=== PATIENT | female | born 1985 | race Caucasian/White ===

== ENCOUNTER → 2016-10-16 | Outpatient (CLI) | payer OTHER ==
[~2016-10-16] MED LIST: CALC500C3; PRENTAB26 PO
[2016-10-16 18:54] LABS: PREG INTERNAL NEGATIVE QC NEG CLEAR BACKGROUND; PREG INTERNAL POSITIVE QC POS CONTROL LINE
== END | disposition home or self-care (01) ==
LOC: C.LAB1850 12:53
PROVIDERS: ATTEND Physician Assistant
DX: N92.6 Irregular menstruation, unspecified (principal)

== ENCOUNTER → 2016-10-16 | Outpatient (CLI) | payer OTHER | END | disposition home or self-care (01) | LOC: C.PAPS 09:30 | PROVIDERS: ATTEND Physician Assistant | DX: Z12.4 Encounter for screening for malignant neoplasm of cervix (principal) ==

== ENCOUNTER 2019-08-03 05:39 | Inpatient (IN) ==
--- NOTE | 2019-08-01 20:01 | History & Physical Report ---
Date of Service August 01, 2019 Assessment & Plan (1) Chronic hypertension during : deliver at 38 weeks per group plan (2) Previous delivery affecting , antepartum: Repeat section. The patient was counseled to the nature of the procedure including alternatives such as labor. Risks were discussed including bleeding infection injury to bowel bladder ureter vessels and even baby. The risks of internal organ injury were discussed as being higher with prior sections. Deep Vein Thrombosis, pulmonary embolus and breakdown of the incision discussed. Deep vein thrombosis pulmonary embolus hernia and failure of the incision to heal were discussed Patient verbalized understanding of this and was given ample time to ask questions History of Present Illness Primary Care Provider: Gini Dominguez MD 38 WEEKS on scheduled C/S day with plan to deliver at 38-38+6 weeks GA due to chronic hypertension diagnosis. GDM, diet controlled. 1 prior C/S Allergies Allergy/AdvReac Type Severity Reaction Status Date / Time morphine Allergy Nausea Verified 07/30/19 08:46 Home Medications Home Medications Medication Instructions Recorded Confirmed Type multivitamin with iron 1 tab PO QDL 12/02/18 07/30/19 History acetone (urine) test #50 ea 01/26/19 07/28/19 Rx blood sugar diagnostic #120 ea 01/26/19 07/28/19 Rx lancets 33 gauge #100 ea 01/26/19 07/28/19 Rx aspirin 81 mg tablet,delayed 81 mg PO QPM 02/03/19 07/30/19 History release labetalol 100 mg tablet 100 mg PO BID #60 tab 04/28/19 07/30/19 Rx famotidine [Pepcid] 20 mg PO BID 07/30/19 07/30/19 History Patient History Medical History Anxiety GERD (gastroesophageal reflux disease) Gestational diabetes Hypertension PCOS (polycystic ovarian syndrome) Varicella Surgical History H/O section History of anesthesia reaction last pt had nausea likely d/t hypotension Family History Grandmother (Maternal) Breast cancer Hypertension Osteoporosis Hypercholesteremia Mother Asthma Hypertension Anxiety Father Hypertension Grandfather (Maternal) Hypertension Diabetes Grandfather (Paternal) Hypertension Grandmother (Paternal) Hypertension Myocardial infarction Denies family history of Ovarian cancer Colorectal cancer Social History (Updated 12/30/18 @ 13:50 by Marija Abernathy) Preferred Language: Kiswahili Director Of Sales Support Required: No Beliefs That Will Affect Care: None marital status: marital status details: Mahendra Land (32) [phone] Current Living Situation: Family Current Living Situation Comment: dog current occupational status: unemployed current occupation: stay at home mom Feels Safe at Home: Yes Smoking Status: Never smoker Hx Alcohol Use: No Hx Substance Use: No Childhood Exposure to Second-Hand Smoke: No Physical Activity Frequency: 3-4 Times per Week Physical Exam Constitutional: WD/WN, vitals as above Respiratory: normal respiratory effort, lungs clear to auscultation Cardiovascular: RRR, no murmur, no edema Gastrointestinal (Abdomen): normal bowel sounds, soft, nontender, no hepatosplenomegaly Genitourinary: OB Exam Abdomen: + fundal height (Term) and + heart tones (NST) OB Exam Monitor Tracing: + external FHT monitor used Coding Level of Care Code None Diagnoses Chronic hypertension during O10.919 Previous delivery affecting , antepartum O34.219
[2019-08-03] MEDS ORDERED: CITRIC ACID/SODIUM CITRATE 15 ML UDC PO SCH (06:00)
[2019-08-03] MEDS ORDERED: CEFAZOLIN 2,000 MG in SYRINGE 0 ML IV SCH (06:00)
[2019-08-03 06:17] LABS: Basophils # (auto) 0.01 K/uL (0-0.2); Basophils % (auto) 0.1 %; Eosinophils # (auto) 0.07 K/uL (0-0.5); Eosinophils % (auto) 0.8 %; Hematocrit (blood only) 31.6 % (37-47); Hemoglobin 10.4 g/dL (12.0-16.0); Immature Granulocytes # (auto) 0.05 K/uL (0.00-0.02); Immature Granulocytes % (auto) 0.6 %; Lymphocytes # (auto) 1.93 K/uL (1.2-3.4); Lymphocytes % (auto) 22.8 %; Mean Platelet Volume 9.6 fL (7.4-10.4); Monocytes # (auto) 0.61 K/uL (0.11-0.59); Monocytes % (auto) 7.2 %; Neutrophils # (auto) 5.79 K/uL (1.4-6.5); Neutrophils % (auto) 68.5 %; Platelet Count 226 K/uL (130-400); RDW Coefficient of Variation 14.1 % (11.5-14.5); RDW Standard Deviation 45.5 fL (36.4-46.3); Red Blood Count 3.59 M/uL (4.2-5.4); White Blood Count 8.46 K/uL (4.8-10.8)
[2019-08-03 06:39] LABS: Mean Corpuscular Hgb Conc 32.9 g/dL (32-36)
[2019-08-03] MEDS ORDERED: LACTATED RINGER'S 1,000 ML IV SCH (07:00)
--- NOTE | 2019-08-03 07:11 | History & Physical Bridge Note ---
Date of Service August 03, 2019 History & Physical Bridge Note I have examined the patient, reviewed the History & Physical and in the interval since the performance of the History & Physical I have noted the following changes of clinical significance: no changes noted Note C/S at 38 weeks because of chronic Hypertension
--- NOTE | 2019-08-03 07:39 | Anesthesiology Consultation ---
Date of Service August 03, 2019 Assessment & Plan Chart Review Chart Review: Acceptable Risk for Surgery and Patient NOT seen in Pre Admission Testing Consults Requested none ASA ASA2 Proposed Anesthesia Anesthesia Type: Spinal (+ intrathecal narcotics) Risk / Benefits Reviewed With: PT / POA / Parent / Guardian, Accepts Plan and Informed Consent Obtained History Surgery Operation Date: 08/03/19 07:30 Proposed Procedures p Section - Genevieve Carolina MD, FACOG Height/Weight Height: 5 ft 4 in Weight: 95.708 kg Allergies Allergy/AdvReac Type Severity Reaction Status Date / Time morphine Allergy Nausea Verified 07/30/19 08:46 Medications Home Medications Medication Instructions Recorded Confirmed Last Taken multivitamin with iron 1 tab PO QDL 12/02/18 07/30/19 Unknown acetone (urine) test #50 ea 01/26/19 07/28/19 Unknown blood sugar diagnostic #120 ea 01/26/19 07/28/19 Unknown lancets 33 gauge #100 ea 01/26/19 07/28/19 Unknown aspirin 81 mg tablet,delayed 81 mg PO QPM 02/03/19 07/30/19 Unknown release labetalol 100 mg tablet 100 mg PO BID #60 tab 04/28/19 07/30/19 Unknown famotidine [Pepcid] 20 mg PO BID 07/30/19 07/30/19 Unknown Active Medications Generic Name Dose Route Start Last Admin Trade Name Freq PRN Reason Stop Dose Admin Lactated Ringer's 1,000 mls @ 999 mls/hr 08/03/19 07:00 08/03/19 06:00 Lr IV 08/03/19 08:00 999 mls/hr .Q1H1M NATACHA Administration NPO Date Last Intake of Fluids: 08/03/19 Time Last Intake of Fluids: 04:30 Last Intake of Fluids Comment: sips for meds Date Last Intake of Solids: 08/02/19 Time Last Intake of Solids: 20:00 Past Medical History Medical History Anxiety GERD (gastroesophageal reflux disease) Gestational diabetes Hypertension PCOS (polycystic ovarian syndrome) Varicella Exercise / Class Metabolic Activity II 4-5 Yardwork/Stairs/Walk up hill Past Family History Family History Grandmother (Maternal) Breast cancer Hypertension Osteoporosis Hypercholesteremia Mother Asthma Hypertension Anxiety Father Hypertension Grandfather (Maternal) Hypertension Diabetes Grandfather (Paternal) Hypertension Grandmother (Paternal) Hypertension Myocardial infarction Denies family history of Ovarian cancer Colorectal cancer Past Surgical History Surgical History H/O section History of anesthesia reaction last pt had nausea likely d/t hypotension Past Anesthesia History No Hx of Anesthesia Complications and No Family Hx of Anesthesia Complications History of PONV No Hx of PONV and No Hx of Motion Sickness Social History Smoking Status: Never smoker Do You Dip or Chew Tobacco: No Hx Alcohol Use: No Hx Substance Use: No substance use type: does not use Physical Exam Vital Signs Last Vital Signs Temp 37.5 C 08/03/19 07:29 Pulse 107 H 08/03/19 05:58 Resp 18 08/03/19 07:29 BP 126/79 08/03/19 05:58 ENMT Mouth: no dentition abnormality Thyromental Distance: > or= 3.5 Finger Breadths Mallampati Class: II Neck normal visual inspection Respiratory normal respiratory effort Auscultation: lungs clear to auscultation bilaterally Cardiovascular Rate/Rhythm: regular rate and regular rhythm Psychiatric Orientation: alert Testing Laboratory Results 08/03/19 06:07 Blood Type O Positive 08/03/19 06:07 Antibody Screen NEGATIVE 08/03/19 06:07
[2019-08-03] MEDS ORDERED: fentaNYL citrate 100 MCG/2 ML VIAL ONE (08:14)
[2019-08-03] MEDS ORDERED: MoRPHine SULFATE PF 1 MG/ML 10 ML AMP/VIAL ONE (08:15)
--- NOTE | 2019-08-03 08:24 | Obstetrical Progress Note ---
Date of Service August 03, 2019 Subjective Note, patient requests tubal ligation at time of , so procedure will be section and bilateral tubal ligation to allow consent to match documentation Results & Data Vital Signs (Past 12 Hours) Vital Signs Temp Pulse Resp BP 08/03/19 07:29 99.5 F 18 08/03/19 05:58 107 H 126/79 08/03/19 05:51 99.5 F 18 PG Care Time/CCT Total # of Minutes Spent Total Time Spent with Patient: Total time spent is greater than 50% in coordination of care (as documented) at patient's floor/unit and/or counseling patient: Coding Level of Care Code None
[2019-08-03] MEDS ORDERED: KETOROLAC 30 MG/ML VIAL ONE (09:03)
[2019-08-03] MEDS ORDERED: ONDANSETRON INJ 2 MG/ML 2 ML VIAL ONE (09:03)
[2019-08-03] MEDS ORDERED: OXYTOCIN 10 UNITS/ML VIAL ONE (09:03)
--- NOTE | 2019-08-03 09:15 | Operative Report ---
PG Post Operative Report Pre & Post Diagnosis Operation Date: 08/03/19 07:30 Pre-Op Diagnosis: Repeat section with bilateral tubal ligataion and chronic hypertension Post-Op Diagnosis: Repeat section with bilateral tubal ligataion and chronic hypertension I identified the patient and participated in the time-out.: Yes Procedure Operation Date: 08/03/19 07:30 Actual Procedures p repeat c/section with tubal ligation for living male child at 0839 (Bilateral) - Genevieve Carolina MD, FACOG Surgeon Genevieve Carolina MD, FACOG [employer] Assistant Dr. Dial Estimated Blood Loss 600 Findings Consistent with Post-Op Diagnosis Specimens bilateral fallopian tubes segments, cord gases, cord blood Description of Procedure Regional anesthetic was given by anesthesia patient had a [place] catheter inserted by nursing patient was prepped and draped in supine position with a leftward tilt preoperative antibiotics were given timeout performed Pickups with teeth were used to test the skin site and it was found adequate for incision scalpel used to make a Pfannenstiel incision cutting down through subcutaneous fat through the fascia fascia was then dissected laterally with the curved Hardy's fascia was released superiorly and inferiorly from the rectus muscles with the curved Hardy scissors, rectus muscle split peritoneal cavity entered in a superior location. Opening enlarged to allow exposure bladder retractor placed Metzenbaums used to dissect away the bladder flap low segment transverse incision made on the uterus with scalpel entry was done bluntly with the straightedge machine operator helper's finger hysterotomy incision extended with the straightedge machine operator helper's finger in the usual fashion baby was delivered then by flexion of the head and pressure from the family service assistant on the abdomen mouth and then nares were suctioned baby was then delivered fully without difficulty without excessive force live vigorous infant cord clamped and cut cord gases obtained cord blood obtained placenta removed manually within ensured all placenta removed with a moist lap sponge uterus exteriorized IV Pitocin had been started by anesthesia and uterine tone improved. The uterus was closed in 2 layers first layer and 0 Monocryl running locked second layer 0 Monocryl nonlocked after generous irrigation and suction of the cul-de-sac and bladder flap regions hemostasis was excellent. Tubal ligation was performed by modified zarina technique. Tube was grasped with mis on left side first, and then tied in 2 separate places with suture. Small section of tubes was then cut with metzenbaums and sent to pathology. Same process was repeated on the right side. Hemostasis was excellent after this and was excellent after uterus placed back in pelvis. Uterus was placed back in the peritoneal cavity and hemostasis was excellent rectus muscles were inspected and found to be dry fascia closed with 0 Vicryl subcutaneous fat closed with 3-0 Vicryl prior to this subcutaneous fat was irrigated skin closed with 4-0 subcuticular Monocryl incision Steri-Stripped urine was clear at the end of the procedure I attest to the content of the Intraoperative Record and any orders documented therein. Any exceptions are noted below.
[2019-08-03 09:26] LABS: Base Excess Cord Arterial Bld 0.3 mEq/L (-9-1.8); CO2 Cord Arterial Blood 61 mmHg (39.1-73.5); HCO3 Cord Arterial Blood 28 mmol/L (19.7-28.5); PO2 Cord Arterial Blood 16 mmHg (4.1-31.7); pH Cord Arterial Blood 7.28 (7.1-7.38)
[2019-08-03 09:29] LABS: Base Excess Cord Venous Blood 1.2 mEq/L (-7.7-1.9); Cord Venous Blood HCO3 26 mmol/L (18.4-26.8); Cord Venous Blood PCO2 44 mmHg (30.4-57.2); Cord Venous Blood PO2 29 mmHg (14.1-43.3)
[2019-08-03 09:34] LABS: Oxygen Sat Cord Arterial Blood < 60.0 % (<60)
[2019-08-03] MEDS ORDERED: HYDROmorphone INJ 0.5 MG/0.5 ML SYR IV PRN (09:55)
[2019-08-03] MEDS ORDERED: NALOXONE HCL 0.4 MG/1 ML VIAL/CARP IV PRN (09:55)
[2019-08-03] MEDS ORDERED: MoRPHine SULFATE 2 MG/ML CARP IV PRN (09:55)
[2019-08-03] MEDS ORDERED: MoRPHine SULFATE PF 1 MG/ML 10 ML AMP/VIAL INT SPINAL ONE (09:55)
[2019-08-03] MEDS ORDERED: ePHEDrine sulfate 50 MG/ML AMP IV PRN (09:55)
[2019-08-03] MEDS ORDERED: LACTATED RINGER'S 500 ML IV PRN (09:55)
[2019-08-03] MEDS ORDERED: NALOXONE HCL 0.08 MG in SYRINGE 1.8 ML IV PRN (09:55)
[2019-08-03] MEDS ORDERED: MEPERIDINE HCL 25 MG/ML CARP/VIAL IV PRN (09:55)
[2019-08-03] MEDS ORDERED: PROMETHAZINE HCL 6.25 MG in SODIUM CHLORIDE 0.9% 50 ML IV PRN (09:55)
[2019-08-03] MEDS ORDERED: DiphenhydrAMINE HCL 50 MG/ML VIAL IV PRN (09:55)
[2019-08-03] MEDS ORDERED: KETOROLAC 30 MG/ML VIAL IV PRN (09:55)
[2019-08-03] MEDS ORDERED: NALBUPHINE HCL INJ 10 MG/ML AMP IV PRN (09:55)
[2019-08-03] MEDS ORDERED: NALOXONE HCL 1 MG in SODIUM CHLORIDE 0.9% 1000ML 1,000 ML IV PRN (09:55)
[2019-08-03] MEDS ORDERED: ONDANSETRON INJ 2 MG/ML 2 ML VIAL IV PRN (09:55)
[2019-08-03] MEDS ORDERED: DIPHTHERIA/TETANUS/PERTUSSIS 0.5 ML SYR/VIAL IM ONE (09:59)
[2019-08-03] MEDS ORDERED: HYDROCORTISONE ACETATE 25 MG SUPP PR PRN (09:59)
[2019-08-03] MEDS ORDERED: SUPERCREAM 0.870% 15 GM JAR EXT PRN (09:59)
[2019-08-03] MEDS ORDERED: MAGNESIUM HYDROXIDE SUSP 30 ML UDC PO PRN (09:59)
[2019-08-03] MEDS ORDERED: SENNA 8.6 MG TAB PO PRN (09:59)
[2019-08-03] MEDS ORDERED: BENZOCAINE 20% AER SPR 82.5 GM CAN EXT PRN (09:59)
[2019-08-03] MEDS ORDERED: DC INTRASPINAL MORPHINE SCH (10:00)
[2019-08-03] MEDS ORDERED: NO NARCOTICS OR SEDATIVES SCH (10:00)
[2019-08-03] MEDS ORDERED: SODIUM CHLORIDE 0.9% 1000ML 1,000 ML IV SCH (10:00)
[2019-08-03] MEDS: OXYTOCIN 20 UNITS in LACTATED RINGER'S 1,000 ML IV SCH ×2 (10:18→18:34)
--- NOTE | 2019-08-03 10:24 | Anesthesiology Progress Note ---
Date of Service August 03, 2019 Anesthesia Post Procedure Vital Signs Vital Signs: Temp Pulse Resp BP Pulse Ox 08/03/19 10:18 68 125/63 98 08/03/19 10:13 65 98 08/03/19 10:10 18 08/03/19 10:09 70 116/59 L 08/03/19 10:08 69 100 08/03/19 10:03 69 99 08/03/19 10:00 81 18 134/65 08/03/19 09:59 81 134/65 08/03/19 09:58 79 100 08/03/19 09:53 79 98 08/03/19 09:50 79 18 98 08/03/19 09:49 72 122/66 08/03/19 09:48 71 100 08/03/19 09:43 71 100 08/03/19 09:41 75 93 08/03/19 09:40 16 08/03/19 09:39 77 153/72 H 08/03/19 09:38 77 100 08/03/19 09:33 61 135/65 100 08/03/19 09:29 67 130/62 08/03/19 09:28 75 100 08/03/19 09:23 72 100 08/03/19 09:20 36.5 C 16 08/03/19 09:18 75 124/62 100 08/03/19 07:29 37.5 C 18 08/03/19 05:58 107 H 126/79 08/03/19 05:51 37.5 C 18 Transfer of Care Handoff Completed per policy Notes Mental Status: alert / awake / arousable Nausea / Vomiting: adequately controlled Pain: adequately controlled Airway Patency, RR, SpO2: stable & adequate BP & HR: stable & adequate Hydration State: stable & adequate Neuraxial Anesthesia: was administered and sensory block is resolving Anesthetic Complications: no major complications apparent and Pt Satisfied with anesthetic care
[2019-08-03] MEDS: SIMETHICONE 80 MG CHEW PO SCH ×3 (16:06→21:07)
[2019-08-03] MEDS ORDERED: LABETALOL HCL 100 MG TAB ONE (17:26)
[2019-08-03] MEDS: LABETALOL HCL 100 MG TAB PO SCH (17:29)
[2019-08-03] MEDS: DOCUSATE SODIUM 100 MG CAP PO SCH (21:07)
[2019-08-04] MEDS ORDERED: LACTATED RINGER'S 1,000 ML IV SCH (02:00)
[2019-08-04] MEDS ORDERED: KETOROLAC 30 MG/ML VIAL IV PRN (03:55)
[2019-08-04] MEDS ORDERED: ONDANSETRON INJ 2 MG/ML 2 ML VIAL IV PRN (03:55)
[2019-08-04] MEDS ORDERED: DiphenhydrAMINE HCL 50 MG/ML VIAL IV PRN (03:55)
[2019-08-04] MEDS ORDERED: PROMETHAZINE HCL 25 MG in SODIUM CHLORIDE 0.9% 50 ML IV PRN (03:55)
[2019-08-04 06:15] LABS: Basophils # (auto) 0.03 K/uL (0-0.2); Basophils % (auto) 0.3 %; Eosinophils # (auto) 0.14 K/uL (0-0.5); Eosinophils % (auto) 1.2 %; Hematocrit (blood only) 30.6 % (37-47); Hemoglobin 9.8 g/dL (12.0-16.0); Immature Granulocytes # (auto) 0.05 K/uL (0.00-0.02); Immature Granulocytes % (auto) 0.4 %; Lymphocytes % (auto) 14.4 %; Mean Corpuscular Hemoglobin 28.6 pg (25-34); Mean Corpuscular Volume 89.2 fL (80-100); Mean Platelet Volume 9.7 fL (7.4-10.4); Monocytes # (auto) 1.05 K/uL (0.11-0.59); Monocytes % (auto) 8.9 %; Neutrophils # (auto) 8.84 K/uL (1.4-6.5); Neutrophils % (auto) 74.8 %; Platelet Count 218 K/uL (130-400); RDW Coefficient of Variation 14.1 % (11.5-14.5); Red Blood Count 3.43 M/uL (4.2-5.4); White Blood Count 11.81 K/uL (4.8-10.8)
--- NOTE | 2019-08-04 07:38 | Obstetrical Progress Note ---
Date of Service August 04, 2019 Assessment & Plan (1) Previous delivery affecting , antepartum: - dressing removed - incision intact - will begin ambulation - BP stable with meds - routine care post C/S care Subjective Voiding: calle catheter in place Feeding Type:: breast feeding Physical Exam Constitutional WD/WN, vitals as above Respiratory normal respiratory effort, lungs clear to auscultation Cardiovascular RRR, no murmur, no edema Gastrointestinal (Abdomen) Dressing removed, Incision intact, appropriate post-op tenderness Musculoskeletal (-) deep calf tenderness Results & Data Vital Signs (Past 12 Hours) Vital Signs Temp Pulse Resp BP Pulse Ox 08/04/19 03:10 99.0 F 73 20 144/76 H 100 08/04/19 02:11 18 97 08/04/19 01:33 16 96 08/04/19 00:00 16 96 08/03/19 23:30 98.2 F 87 20 126/76 97 08/03/19 23:00 20 99 08/03/19 22:00 18 98 08/03/19 21:08 18 99 08/03/19 20:00 18 99
[2019-08-04] MEDS: SIMETHICONE 80 MG CHEW PO SCH ×4 (08:39→20:20)
[2019-08-04] MEDS: PRENATAL VITAMIN 1 TAB PO SCH (08:40)
[2019-08-04] MEDS: FERROUS SULFATE 325 MG TAB PO SCH (08:40)
[2019-08-04] MEDS: DOCUSATE SODIUM 100 MG CAP PO SCH ×2 (08:40→20:19)
[2019-08-04] MEDS: IBUPROFEN 600 MG TAB PO PRN ×2 (08:40→16:32)
[2019-08-04] MEDS: LABETALOL HCL 100 MG TAB PO SCH ×2 (08:40→20:20)
[2019-08-04] MEDS: OXYCODONE/ACETAMINOPHEN 5mg/325mg TAB PO PRN ×2 (08:41→16:33)
[2019-08-04] MEDS ORDERED: bisacodyL 5 MG TABEC PO SCH (20:00)
[2019-08-05] MEDS: OXYCODONE/ACETAMINOPHEN 5mg/325mg TAB PO PRN ×2 (00:04→07:28)
[2019-08-05] MEDS: IBUPROFEN 600 MG TAB PO PRN ×2 (00:05→07:28)
--- NOTE | 2019-08-05 05:57 | Obstetrical Progress Note ---
Date of Service August 05, 2019 Assessment & Plan (1) S/P section: Doing well. Patient desires d/c today. Instructions reviewed. f/u 6 weeks in the office. Subjective Ambulation: ambulating normally Voiding: no voiding problems Passing Gas:: Yes Diet Tolerance:: regular diet Lochia:: Small Feeding Type:: breast feeding Pain well controlled. Physical Exam Constitutional WD/WN, vitals as above Cardiovascular Extremities: no calf tenderness and no edema Gastrointestinal (Abdomen) soft, appropriately tender, nd ff/appro tender at u incision d/c/i Psychiatric A+Ox3, euthymic affect Results & Data Vital Signs (Past 12 Hours) Vital Signs Temp Pulse Resp BP Pulse Ox 08/04/19 23:15 36.7 C 69 18 125/74 98
[2019-08-05 06:07] LABS: Hematocrit (blood only) 32.5 % (37-47); Hemoglobin 10.5 g/dL (12.0-16.0)
[2019-08-05] MEDS: SIMETHICONE 80 MG CHEW PO SCH (07:28)
[2019-08-05] MEDS: PRENATAL VITAMIN 1 TAB PO SCH (07:28)
[2019-08-05] MEDS: DOCUSATE SODIUM 100 MG CAP PO SCH (07:28)
[2019-08-05] MEDS: FERROUS SULFATE 325 MG TAB PO SCH (07:28)
[2019-08-05] MEDS: LABETALOL HCL 100 MG TAB PO SCH (07:46)
[2019-08-05] MEDS ORDERED: bisacodyL 10 MG SUPP PR PRN (09:06)
--- NOTE | 2019-08-07 07:21 | Discharge Summary ---
Date of Service August 07, 2019 Admission HPI Per Admitting Provider 38 WEEKS on scheduled C/S day with plan to deliver at 38-38+6 weeks GA due to chronic hypertension diagnosis. GDM, diet controlled. 1 prior C/S Admission Exam (Per Admitting) Constitutional WD/WN, vitals as above Respiratory normal respiratory effort, lungs clear to auscultation Cardiovascular RRR, no murmur, no edema Gastrointestinal (Abdomen) normal bowel sounds, soft, nontender, no hepatosplenomegaly Discharge Data Procedures Performed Operation Date: 08/03/19 07:30 Actual Procedures p repeat c/section for living male child at 0839 (Bilateral) - Genevieve Carolina MD, FACOG s with tubal ligation(Bilateral) - Genevieve Carolina MD, FACOG Hospital Course (1) S/P section: Doing well. Patient desires d/c today. Instructions reviewed. f/u 6 weeks in the office. Coding Level of Care Code None Diagnoses S/P section Z98.891
== END 2019-08-05 13:02 | disposition home or self-care (01) | DRG 785 ==
LOC: 4S1 05:39 → EDSTATUS 07:30 → 4S2 11:49
PROC: M.PPTLD (2019-08-03 07:30)